=== PATIENT | female | born 1995 | race Asian ===

== ENCOUNTER 2018-03-09 14:24 | Emergency (ER) | payer OTHER ==
[~2018-03-09] VITALS: Ht 160 cm; Wt 78.2 kg
[2018-03-09 14:36] VITALS: Ht 160 cm; Wt 78.2 kg
[2018-03-09 15:35] VITALS: BP 117/62
== END 2018-03-09 15:35 | disposition home or self-care (01) ==
LOC: ED 14:24
DX: M54.5 Low back pain (principal); O26.892 Other specified pregnancy related conditions, second trimester; Z3A.28 28 weeks gestation of pregnancy; W01.0XXA Fall on same level from slipping, tripping and stumbling without subsequent striking against object, initial encounter; Y93.89 Activity, other specified; Y92.009 Unspecified place in unspecified non-institutional (private) residence as the place of occurrence of the external cause; Y99.8 Other external cause status